=== PATIENT | female | born 1945 | race Caucasian/White ===

== ENCOUNTER 2024-10-11 10:10 | Outpatient (OUT) | payer MEDICARE, OTHER, SELFPAY ==
[2024-10-11 11:07] LABS: Hematocrit 46.6 % (36.0-48.0); Hemoglobin 14.6 g/dL (12.0-16.0); Immature Granulocytes Abs Auto 0.02 10^3/uL (0.00-0.03); Immature Granulocytes Pct Auto 0.4 % (0.0-0.5); Lymphocytes Absolute Auto 1.5 10^3/uL (1.2-3.8); Mean Corpuscular HGB Conc 31.3 g/dL (29.9-35.2); Mean Corpuscular Hemoglobin 27.5 pg (26.7-34.0); Mean Corpuscular Volume 87.9 fL (81.0-99.0); Platelet Count 286 10^3/uL (150-450); Red Blood Count 5.30 10^6/uL (4.20-5.40); White Blood Count 4.9 10^3/uL (4.0-11.0)
[2024-10-11 11:43] LABS: Iron 84.0 ug/dL (50.0-170.0)
[2024-10-11 12:57] LABS: Alanine Aminotransferase 25 U/L (14-59); Albumin Globulin Ratio 1.0; Albumin Level 3.6 g/dL (3.4-5.0); Alkaline Phosphatase 68 U/L (46-116); Anion Gap 14.4; Aspartate Amino Transferase 17 U/L (15-37); Blood Urea Nitrogen 21.0 mg/dL (7.0-18.0); Calcium 9.3 mg/dL (8.5-10.1); Carbon Dioxide 29.0 mmol/L (21.0-32.0); Chloride 105 mmol/L (98-107); Cholesterol 287 mg/dL (<=200); Estimated GFR (African America >60 (>=60 mL/min/1.73m^2); Estimated GFR (Non-African Ame >60 (>=60 mL/min/1.73m^2); Free T3 2.93 pg/mL (2.18-3.98); Globulin 3.6 g/dL; Glucose 92 mg/dL (74-106); HDL Cholesterol 84 mg/dL (40-60); Potassium 4.4 mmol/L (3.5-5.1); Sodium 144 mmol/L (136-145); Thyroid Stimulating Hormone 1.720 uIU/mL (0.358-3.740); Total Protein 7.2 g/dL (6.4-8.2); Triglycerides 149 mg/dL (<=150); VLDL CHOLESTEROL 29.8 mg/dL
[2024-10-12 06:08] LABS: Vitamin B12 1327 pg/mL (232-1245)
== END 2024-10-11 10:11 | disposition home or self-care (01) ==
PROVIDERS: PCP Nurse Practitioner Family; Visit Provider Nurse Practitioner Family
DX: R73.09 Other abnormal glucose (principal); E55.9 Vitamin D deficiency, unspecified; I10 Essential (primary) hypertension; D50.9 Iron deficiency anemia, unspecified
CPT/HCPCS: 36415; 80053; 80061; 82306; 82607; 83036; 83525; 83540; 84436; 84443; 84481; 85025